=== PATIENT | female | born 1955 | race Caucasian/White ===

== ENCOUNTER 2018-12-31 10:36 | Emergency (ER) | payer MEDICAID ==
[~2018-12-31] VITALS: Ht 165.1 cm; Wt 86.2 kg
[2018-12-31 11:03] VITALS: BP_SYST 153
--- NOTE | 2018-12-31 11:09 | NUR ---
Patient to ER bed 7 to gown for evaluation. Side rails up. Report given to Betsy LOVETT.
--- NOTE | 2018-12-31 11:15 | NUR ---
Patient c/o rash on bilateral AC that progressed to legs and then to the face and neck. Patient does not complain of pain @ this time. Patient in no signs of distress. Safety precautions enforced.
--- NOTE | 2018-12-31 11:20 | NUR ---
Dr. Carrero @ bedside for examination.
--- NOTE | 2018-12-31 11:34 | NUR ---
Patient given written and verbal discharge instructions and verbalizes understanding. ER MD discussed with patient the results and treatment provided. Patient in stable condition. ID arm band removed. Rx of Prednisone, Zyrtec, Triamcinolone given. Patient educated on pain management and to follow up with PMD. Pain Scale 4/10, pt is ok to discharge and take medications as prescribed at home. Opportunity for questions provided and answered. Medication side effect fact sheet provided.
== END 2018-12-31 11:36 | disposition home or self-care (01) ==
LOC: SED 10:36
DX: L30.9 Dermatitis, unspecified (principal)
CPT/HCPCS: 99283

== ENCOUNTER 2019-01-15 10:41 | Emergency (ER) | payer MEDICAID ==
[~2019-01-15] VITALS: Ht 165.1 cm; Wt 86.2 kg
[2019-01-15 10:45] VITALS: BP_SYST 146
[2019-01-15] MEDS ORDERED: HYDROcodone/ACETAMIN 5-325 MG TAB (NORCO/ VICODIN) PO ONE (11:00)
[2019-01-15 14:28] VITALS: BP_SYST 146
== END 2019-01-15 14:28 | disposition home or self-care (01) ==
LOC: SED 10:41
DX: S83.207A Unspecified tear of unspecified meniscus, current injury, left knee, initial encounter (principal); M71.22 Synovial cyst of popliteal space [Baker], left knee; M94.262 Chondromalacia, left knee; F17.210 Nicotine dependence, cigarettes, uncomplicated; X50.9XXA Other and unspecified overexertion or strenuous movements or postures, initial encounter; Y93.89 Activity, other specified; Y92.89 Other specified places as the place of occurrence of the external cause; Y99.8 Other external cause status
CPT/HCPCS: 73564; 73721; 99284; J7030